=== PATIENT | female | born 1950 | race Caucasian/White ===

== ENCOUNTER 2021-04-10 12:40 | Emergency (ER) | payer MEDICARE, SELFPAY ==
[2021-04-10] VITALS (8 sets, daily range): BP systolic 133–185; BP diastolic 70–88; PULSE 61–72; RESP 14–24; TEMP 36.6; O2SAT 98–99; BMI 25.1
--- NOTE | 2021-04-10 13:35 | DI.RAD.S_ITS ---
PROCEDURE: XR CHEST 1V INDICATIONS: chest pain TECHNIQUE: One view of the chest was acquired. COMPARISON: None. FINDINGS: Surgical changes and devices: None. Lungs and pleura: Lungs are clear. No pleural effusions or pneumothorax. Mediastinum: Mediastinal contours appear normal. Heart size is normal. Bones and chest wall: No suspicious bony lesions. Overlying soft tissues appear unremarkable. IMPRESSION: No acute pulmonary process. Dictated by: Ashley Roth M.D. on 04/10/2021 at 14:29 Approved by: Ashley Roth M.D. on 04/10/2021 at 14:29
[2021-04-10 14:07] LABS: Add Manual Diff / Slide Review NO; Basophils Absolute Auto 0 /uL (0-100); Basophils Percent Auto 0.2 % (0-2); Eosinophils Absolute Auto 100 /uL (0-450); Eosinophils Percent Auto 0.6 % (2-4); Hematocrit 43.1 % (36-46); Hemoglobin 14.6 g/dL (12.0-16.0); Lymphocytes Absolute Auto 800 /uL (1100-4500); Lymphocytes Percent Auto 6.8 % (25-40); Mean Corpuscular HGB Conc 33.9 % (30-36); Mean Corpuscular Hemoglobin 31.7 PG (26-34); Mean Corpuscular Volume 93.4 fL (80-100); Monocytes Absolute Auto 800 /uL (0-900); Monocytes Percent Auto 6.7 % (3-14); Neutrophils Absolute Auto 10500 /uL (1500-7000); Neutrophils Percent Auto 85.7 % (50-75); Platelet Count 183 X10^3/uL (150-400); Red Blood Cell Count 4.62 X10^6/uL (4.0-5.2); Red Cell Distribution Width 12.5 % (11.6-14.8); White Blood Cell Count 12.3 X10^3/uL (4.5-11.0)
[2021-04-10 14:17] LABS: Alanine Aminotransferase 28 IU/L (<35); Albumin 4.6 g/dL (3.5-5.0); Albumin Globulin Ratio 1.6 (1.0-2.8); Alkaline Phosphatase 74 U/L (38-126); Aspartate Aminotransferase 34 IU/L (14-36); BUN Creatinine Ratio 20.9 (6-22); Bilirubin Total 0.5 mg/dL (0.2-1.3); Blood Urea Nitrogen 14 mg/dL (7-17); Calcium 10.2 mg/dL (8.4-10.2); Carbon Dioxide 30 mmol/L (22-32); Chloride 103 mmol/L (98-107); Creatine Kinase 117 U/L (30-135); Estimated Glomerular Filt Rate > 60.0 mL/min (>60); Globulin 2.9 g/dL (1.7-4.1); Glucose 97 mg/dL (80-110); HEMOLYSIS < 15 (0-50); Lipase 90 U/L (23-300); Potassium 4.1 mmol/L (3.4-5.1); Sodium 141 mmol/L (137-145); Total Protein 7.5 g/dL (6.3-8.2)
[2021-04-10 14:28] LABS: Troponin I < 0.012 ng/mL (0.01-0.034)
[2021-04-10 14:32] LABS: CKMB % Relative Index 1.8 % (1.5-5.0); Creatine Kinase MB 2.12 ng/mL (<2.37)
--- NOTE | 2021-04-10 14:57 | PC.NURSE ---
Reports feeling spacey, anxiety and nausea this morning. Reports these are similar symptoms when she had her NH 2.5 years ago. Currently denies symptoms. Informed pt to alert staff if symptoms return so another EKG can be done.
--- NOTE | 2021-04-10 15:49 | ED_ITS ---
HPI - Chest Pain <Gilbert Saucedo PA-C - Last Filed: 04/10/21 19:33> General Chief Complaint: Chest Pain Stated Complaint: Not Feeling Good/HX Heart Attack Time Seen by Provider: 04/10/21 14:49 Source: patient and family Mode of arrival: Family Vehicle Limitations: no limitations History of Present Illness HPI narrative: Patient is a 70-year-old female presenting to emergency department today for evaluation of chest pain that began this morning. Patient states that she experienced mild chest discomfort while she was on her walk today, noting that she experienced associated symptoms of anxiety, abdominal pain, shortness of breath, and 1 episode nonbloody nonbilious vomiting today. Of note, patient states that these are the symptoms that she experienced prior a heart attack that she experienced approximately 2 and half years ago. Additionally, patient states that she now feels much better since being in the emergency department. Patient has a history of a cardiac stent following her myocardial infarction. Patient denies fever, chills, cough, diarrhea, dysuria, hematuria, diaphoresis, dizziness, changes in vision, changes in hearing. No other concerns voiced at this time. Related Data Previous Rx's Medication Instructions Recorded sulfamethoxazole 800 1 tab PO BID #10 tab 04/10/21 mg-trimethoprim 160 mg tablet (Bactrim DS) Allergies Allergy/AdvReac Type Severity Reaction Status Date / Time No Known Drug Allergies Allergy Verified 04/10/21 13:35 Review of Systems <Gilbert Saucedo PA-C - Last Filed: 04/10/21 19:33> Constitutional Constitutional: Denies chills, Denies fatigue, Denies fever(s), Denies frequent falls, Denies lethargy and Denies weakness Eyes Eyes: Denies loss of vision ENT Ears, Nose, Mouth, and Throat: Denies dizziness Cardiovascular Cardiovascular: Reports chest pain, Denies irregular heart rhythm, Denies lightheadedness, Denies palpitations, Reports dyspnea, Reports dyspnea on exertion and Denies orthopnea Respiratory Respiratory: Denies cough, Reports dyspnea, Reports dyspnea on exertion and Denies wheezing Gastrointestinal Gastrointestinal: Reports abdominal pain, Denies change in bowel habits, Denies diarrhea, Reports nausea and Reports vomiting Genitourinary Genitourinary: Denies hematuria, Denies flank pain, Denies urinary incontinence and Denies urinary urgency Musculoskeletal Musculoskeletal: Denies numbness and Denies tingling Neurologic Neurologic: Denies behavioral changes, Denies confusion, Denies dizziness, De nies frequent falls, Denies loss of vision, Denies numbness, Denies tingling and Denies weakness Psychiatric Psychiatric: Reports anxiety, Denies behavioral changes and Denies confusion Endocrine Endocrine: Denies fatigue and Denies palpitations Allergic/Immunologic Allergic/Immunologic: Denies wheezing Patient History <Gilbert Saucedo PA-C - Last Filed: 04/10/21 19:33> Social History Smoking Status: Former smoker Smoking Status: Former smoker tobacco type: cigarettes alcohol intake frequency: 0-2 drinks per day Substance Use Type: does not use Exam <Gilbert Saucedo PA-C - Last Filed: 04/10/21 19:33> Narrative Exam Narrative: GENERAL: 70 year old patient appears stated age. Well-developed patient, in no acute distress. HEAD: Atraumatic. Normocephalic. EYES: Pupils equal round and reactive. Extraocular motions intact. No scleral icterus. No injection or drainage. ENT: Nose without bleeding, purulent drainage. Throat without erythema, tonsillar hypertrophy or exudate. Airway patent. NECK: Trachea midline. Non tender CARDIOVASCULAR: Regular rate and rhythm without murmurs, gallops, or rubs. RESPIRATORY: Clear to auscultation. Breath sounds equal bilaterally. No wheezes, rales, or rhonchi. GASTROINTESTINAL: Abdomen soft, non-tender, nondistended. EXTREMITIES: No edema or joint tenderness. BACK: Nontender without deformity or crepitance. No flank tenderness. NEURO: AOx3. SKIN: No rash or erythema of visible areas Initial Vital Signs Initial Vital Signs: Vital Signs Temperature 97.9 F 04/10/21 13:29 Pulse Rate 72 04/10/21 13:29 Respiratory Rate 18 04/10/21 13:29 Blood Pressure 179/80 H 04/10/21 13:29 Pulse Oximetry 99 04/10/21 13:29 <Tracy Sanchez DO - Last Filed: 04/11/21 11:15> Initial Vital Signs Initial Vital Signs: Vital Signs Temperature 97.9 F 04/10/21 13:29 Pulse Rate 72 04/10/21 13:29 Respiratory Rate 18 04/10/21 13:29 Blood Pressure 179/80 H 04/10/21 13:29 Pulse Oximetry 99 04/10/21 13:29 Course <Gilbert Saucedo PA-C - Last Filed: 04/10/21 19:33> Course Course Narrative: CBC, CMP, lipase, troponin with repeat, EKG, chest x-ray ordered. Orders Ordered: ED Orders 04/10/21 13:35 XR chest 1V Stat EKG-12 Lead Stat 04/10/21 13:56 Complete Blood Count AUTO DIFF Stat Comprehensive Metabolic Panel Stat Lipase Stat Troponin & CK Cardiac Panel Stat 04/10/21 16:07 Trop I [Troponin I] Stat 04/10/21 16:52 Urine Culture Stat Urine Microscopic Stat Vital Signs Vital signs: Vital Signs - 8 hr 04/10/21 13:29 04/10/21 14:59 04/10/21 15:14 Temperature 97.9 F Pulse Rate 72 65 64 Respiratory Rate 18 20 Blood Pressure 179/80 H 172/78 H 133/88 Pulse Oximetry 99 99 98 04/10/21 15:30 04/10/21 16:01 04/10/21 16:30 Temperature Pulse Rate 61 71 62 Respiratory Rate 14 24 22 Blood Pressure 185/80 H 162/70 H 166/74 H Pulse Oximetry 98 98 98 04/10/21 16:55 04/10/21 17:25 Temperature Pulse Rate 67 72 Respiratory Rate 20 Blood Pressure 183/79 H 168/72 H Pulse Oximetry 99 98 <Tracy Sanchez DO - Last Filed: 04/11/21 11:15> Orders Ordered: ED Orders 04/10/21 13:35 XR chest 1V Stat EKG-12 Lead Stat 04/10/21 13:56 Complete Blood Count AUTO DIFF Stat Comprehensive Metabolic Panel Stat Lipase Stat Troponin & CK Cardiac Panel Stat 04/10/21 16:07 Trop I [Troponin I] Stat 04/10/21 16:52 Urine Culture Stat Urine Microscopic Stat Vital Signs Vital signs: Vital Signs - 8 hr 04/10/21 13:29 04/10/21 14:59 04/10/21 15:14 Temperature 97.9 F Pulse Rate 72 65 64 Respiratory Rate 18 20 Blood Pressure 179/80 H 172/78 H 133/88 Pulse Oximetry 99 99 98 04/10/21 15:30 04/10/21 16:01 04/10/21 16:30 Temperature Pulse Rate 61 71 62 Respiratory Rate 14 24 22 Blood Pressure 185/80 H 162/70 H 166/74 H Pulse Oximetry 98 98 98 04/10/21 16:55 04/10/21 17:25 Temperature Pulse Rate 67 72 Respiratory Rate 20 Blood Pressure 183/79 H 168/72 H Pulse Oximetry 99 98 MDM - Chest Pain <Gilbert Saucedo PA-C - Last Filed: 04/10/21 19:33> Lab Data Result diagrams: 04/10/21 13:56 04/10/21 13:56 Labs: Lab Results 04/10/21 04/10/21 04/10/21 Range/Units 13:56 13:56 16:07 WBC 12.3 H (4.5-11.0) X10^3/uL RBC 4.62 (4.0-5.2) X10^6/uL Hgb 14.6 (12.0-16.0) g/dL Hct 43.1 (36-46) % MCV 93.4 (80-100) fL MCH 31.7 (26-34) PG MCHC 33.9 (30-36) % RDW 12.5 (11.6-14.8) % Plt Count 183 (150-400) X10^3/uL Neut % (Auto) 85.7 H (50-75) % Lymph % (Auto) 6.8 L (25-40) % [place] % (Auto) 6.7 (3-14) % Eos % (Auto) 0.6 L (2-4) % Baso % (Auto) 0.2 (0-2) % Neut # (Auto) 16305 H (5768-7203) /uL Lymph # (Auto) 800 L (6411-7145) /uL [place] # (Auto) 800 (0-900) /uL Eos # (Auto) 100 (0-450) /uL Baso # (Auto) 0 (0-100) /uL Sodium 141 (137-145) mmol/L Potassium 4.1 (3.4-5.1) mmol/L Chloride 103 (98-107) mmol/L Carbon Dioxide 30 (22-32) mmol/L BUN 14 (7-17) mg/dL Creatinine 0.67 (0.52-1.04) mg/dL Estimated GFR > 60.0 (>60) mL/min BUN/Creatinine Ratio 20.9 (6-22) Glucose 97 (80-110) mg/dL Calcium 10.2 (8.4-10.2) mg/dL Total Bilirubin 0.5 (0.2-1.3) mg/dL AST 34 (14-36) IU/L ALT 28 (<35) IU/L Alkaline Phosphatase 74 (38-126) U/L Total Creatine Kinase 117 (30-135) U/L CK-MB (CK-2) 2.12 (<2.37) ng/mL CK-MB (CK-2) Rel Index 1.8 (1.5-5.0) % Troponin I < 0.012 < 0.012 (0.01-0.034) ng/mL Total Protein 7.5 (6.3-8.2) g/dL Albumin 4.6 (3.5-5.0) g/dL Globulin 2.9 (1.7-4.1) g/dL Albumin/Globulin Ratio 1.6 (1.0-2.8) Lipase 90 (23-300) U/L Urine RBC (0-5/HPF) Urine WBC (0-5/HPF) Amorphous Sediment Urine Bacteria (None) Ur Culture Indicated? 04/10/21 Range/Units 16:52 WBC (4.5-11.0) X10^3/uL RBC (4.0-5.2) X10^6/uL Hgb (12.0-16.0) g/dL Hct (36-46) % MCV (80-100) fL MCH (26-34) PG MCHC (30-36) % RDW (11.6-14.8) % Plt Count (150-400) X10^3/uL Neut % (Auto) (50-75) % Lymph % (Auto) (25-40) % [place] % (Auto) (3-14) % Eos % (Auto) (2-4) % Baso % (Auto) (0-2) % Neut # (Auto) (9619-1362) /uL Lymph # (Auto) (5106-3631) /uL [place] # (Auto) (0-900) /uL Eos # (Auto) (0-450) /uL Baso # (Auto) (0-100) /uL Sodium (137-145) mmol/L Potassium (3.4-5.1) mmol/L Chloride (98-107) mmol/L Carbon Dioxide (22-32) mmol/L BUN (7-17) mg/dL Creatinine (0.52-1.04) mg/dL Estimated GFR (>60) mL/min BUN/Creatinine Ratio (6-22) Glucose (80-110) mg/dL Calcium (8.4-10.2) mg/dL Total Bilirubin (0.2-1.3) mg/dL AST (14-36) IU/L ALT (<35) IU/L Alkaline Phosphatase (38-126) U/L Total Creatine Kinase (30-135) U/L CK-MB (CK-2) (<2.37) ng/mL CK-MB (CK-2) Rel Index (1.5-5.0) % Troponin I (0.01-0.034) ng/mL Total Protein (6.3-8.2) g/dL Albumin (3.5-5.0) g/dL Globulin (1.7-4.1) g/dL Albumin/Globulin Ratio (1.0-2.8) Lipase (23-300) U/L Urine RBC None seen (0-5/HPF) Urine WBC 5-10/hpf H (0-5/HPF) Amorphous Sediment 1+ Urine Bacteria None seen (None) Ur Culture Indicated? Specimen cultured Urine Dip Bedside Urine Glucose Negative Bedside Urine Bilirubin - Negative Bedside Urine Ketone +/- 5 Urine Specific Supai 1.015 Bedside Urine Occult Blood + Bedside Urine pH 6.5 Bedside Urine Protein - Negative Bedside Urine Urobilinogen - Negative Bedside Urine Nitrite - Negative Bedside Urine Leukocytes +/- 15 Esterase Imaging Data Chest x-ray: Radiologist's Impression: PROCEDURE:? XR CHEST 1V ? INDICATIONS:? chest pain ? TECHNIQUE:? One view of the chest was acquired.? ? COMPARISON:? None. ? FINDINGS:? ? Surgical changes and devices:? None.? ? Lungs and pleura:? Lungs are clear.? No pleural effusions or pneumothorax.? ? Mediastinum:? Mediastinal contours appear normal.? Heart size is normal.? ? Bones and chest wall:? No suspicious bony lesions.? Overlying soft tissues appear unremarkable.? ? IMPRESSION:? No acute pulmonary process. ? ? Dictated by: Ashley Roth M.D. on 04/10/2021 at 14:29 ? ? Approved by: Ashley Roth M.D. on 04/10/2021 at 14:29 ? MDM Narrative Medical decision making narrative: To consider myocardial infarction versus ACS versus musculoskeletal chest pain versus rib fracture versus brief resolved unexplained event. Overall physical examination history reassuring. Troponin with repeat negative in the emergency department with reassuring EKG. Discussed with patient the results of her labs and imaging. At this time she feels comfortable being discharged home with strict follow-up with primary care discussed. Strict return precautions discussed with patient prior to discharge. Discussed urinalysis results with patient. At this time she would prefer to be treated despite being asympto matic. Discussed risks benefits of treatment, however she would prefer to have the antibiotics ready if her symptoms worsen. <Tracy Sanchez, DO - Last Filed: 04/11/21 11:15> Lab Data Labs: Lab Results 04/10/21 04/10/21 04/10/21 Range/Units 13:56 13:56 16:07 WBC 12.3 H (4.5-11.0) X10^3/uL RBC 4.62 (4.0-5.2) X10^6/uL Hgb 14.6 (12.0-16.0) g/dL Hct 43.1 (36-46) % MCV 93.4 (80-100) fL MCH 31.7 (26-34) PG MCHC 33.9 (30-36) % RDW 12.5 (11.6-14.8) % Plt Count 183 (150-400) X10^3/uL Neut % (Auto) 85.7 H (50-75) % Lymph % (Auto) 6.8 L (25-40) % [place] % (Auto) 6.7 (3-14) % Eos % (Auto) 0.6 L (2-4) % Baso % (Auto) 0.2 (0-2) % Neut # (Auto) 30566 H (0290-3041) /uL Lymph # (Auto) 800 L (2079-2931) /uL [place] # (Auto) 800 (0-900) /uL Eos # (Auto) 100 (0-450) /uL Baso # (Auto) 0 (0-100) /uL Sodium 141 (137-145) mmol/L Potassium 4.1 (3.4-5.1) mmol/L Chloride 103 (98-107) mmol/L Carbon Dioxide 30 (22-32) mmol/L BUN 14 (7-17) mg/dL Creatinine 0.67 (0.52-1.04) mg/dL Estimated GFR > 60.0 (>60) mL/min BUN/Creatinine Ratio 20.9 (6-22) Glucose 97 (80-110) mg/dL Calcium 10.2 (8.4-10.2) mg/dL Total Bilirubin 0.5 (0.2-1.3) mg/dL AST 34 (14-36) IU/L ALT 28 (<35) IU/L Alkaline Phosphatase 74 (38-126) U/L Total Creatine Kinase 117 (30-135) U/L CK-MB (CK-2) 2.12 (<2.37) ng/mL CK-MB (CK-2) Rel Index 1.8 (1.5-5.0) % Troponin I < 0.012 < 0.012 (0.01-0.034) ng/mL Total Protein 7.5 (6.3-8.2) g/dL Albumin 4.6 (3.5-5.0) g/dL Globulin 2.9 (1.7-4.1) g/dL Albumin/Globulin Ratio 1.6 (1.0-2.8) Lipase 90 (23-300) U/L Urine RBC (0-5/HPF) Urine WBC (0-5/HPF) Amorphous Sediment Urine Bacteria (None) Ur Culture Indicated? 04/10/21 Range/Units 16:52 WBC (4.5-11.0) X10^3/uL RBC (4.0-5.2) X10^6/uL Hgb (12.0-16.0) g/dL Hct (36-46) % MCV (80-100) fL MCH (26-34) PG MCHC (30-36) % RDW (11.6-14.8) % Plt Count (150-400) X10^3/uL Neut % (Auto) (50-75) % Lymph % (Auto) (25-40) % [place] % (Auto) (3-14) % Eos % (Auto) (2-4) % Baso % (Auto) (0-2) % Neut # (Auto) (8627-9546) /uL Lymph # (Auto) (3577-7956) /uL [place] # (Auto) (0-900) /uL Eos # (Auto) (0-450) /uL Baso # (Auto) (0-100) /uL Sodium (137-145) mmol/L Potassium (3.4-5.1) mmol/L Chloride (98-107) mmol/L Carbon Dioxide (22-32) mmol/L BUN (7-17) mg/dL Creatinine (0.52-1.04) mg/dL Estimated GFR (>60) mL/min BUN/Creatinine Ratio (6-22) Glucose (80-110) mg/dL Calcium (8.4-10.2) mg/dL Total Bilirubin (0.2-1.3) mg/dL AST (14-36) IU/L ALT (<35) IU/L Alkaline Phosphatase (38-126) U/L Total Creatine Kinase (30-135) U/L CK-MB (CK-2) (<2.37) ng/mL CK-MB (CK-2) Rel Index (1.5-5.0) % Troponin I (0.01-0.034) ng/mL Total Protein (6.3-8.2) g/dL Albumin (3.5-5.0) g/dL Globulin (1.7-4.1) g/dL Albumin/Globulin Ratio (1.0-2.8) Lipase (23-300) U/L Urine RBC None seen (0-5/HPF) Urine WBC 5-10/hpf H (0-5/HPF) Amorphous Sediment 1+ Urine Bacteria None seen (None) Ur Culture Indicated? Specimen cultured Urine Dip Bedside Urine Glucose Negative Bedside Urine Bilirubin - Negative Bedside Urine Ketone +/- 5 Urine Specific [place] 1.015 Bedside Urine Occult Blood + Bedside Urine pH 6.5 Bedside Urine Protein - Negative Bedside Urine Urobilinogen - Negative Bedside Urine Nitrite - Negative Bedside Urine Leukocytes +/- 15 Esterase ECG Data Interpretation: Normal sinus rhythm rate 72 WI interval [address] changes artifact noted no priors to compare Discharge Plan Departure Patient Disposition: Home Clinical Impression: Chest pain, Urinary tract infection Instructions: DI for Chest Pain Activity Restrictions/Additional Instructions: *You have been diagnosed with chest pain, UTI *What to do: *Please continue to take your regular medications as directed. [X] New medication prescriptions sent to your pharmacy: [facility] - Bactrim [ ] New medication written as a paper prescription [ ] No new medications given *Please follow up with your primary care provider in 2-3 days, call for an appointment. Let them know you were seen in the Emergency Department and that we ask that you be seen in follow up. We will electronically transmit a record of today's note if your PCP is in our system *If you do not have a primary care provider please contact the [facility] Resource line at [phone]. They will ask some questions about your medical history and help get you set up with a doctor in the community. *Return to Emergency Department if you should have any new, worsening or concerning symptoms, such as fever greater than 101 F, shaking chills, worsening pain, persistent vomiting or other bothersome symptoms. Prescriptions: New sulfamethoxazole-trimethoprim [Bactrim DS] 800-160 mg tablet 1 tab PO BID Qty: 10 0RF Referrals: Jackelyn Waller DO [Primary Care Provider] - <Tracy Sanchez DO - Last Filed: 04/11/21 11:15> Cosign ED Attending Sudeepature Attestation: I was immediately available in the department for consultation. Documentation has been reviewed. I agree with assessment and plan.
[2021-04-10 16:33] LABS: Troponin I < 0.012 ng/mL (0.01-0.034)
[2021-04-10 17:10] LABS: Amorphous Sediment Urine 1+; Bacteria Urine None Seen; RBC Urine None Seen (0-5/HPF)
[2021-04-10 17:11] LABS: Culture Indicated Urine Specimen Cultured; WBC Urine 5-10/HPF (0-5/HPF)
== END 2021-04-10 17:35 | disposition home or self-care (01) ==
PROVIDERS: Emergency Medicine; Emergency Provider Physician Assistant; PCP Family Medicine
DX: R07.9 Chest pain, unspecified (principal); N39.0 Urinary tract infection, site not specified
CPT/HCPCS: 36415; 71045; 80053; 81003; 81015; 82550; 82553; 83690; 84484; 85025; 87086; 93005; 93010; 99284